=== PATIENT | female | born 1985 | race Caucasian/White ===

== ENCOUNTER → 2017-12-15 | Outpatient (CLI) | payer OTHER, BC ==
[~2017-12-15] MED LIST: AMOX-559 PO; AZIT-1 PO; ESCI20TA38 PO; OSEL30CA2 PO; ROBC PO
[2017-12-15 14:15] LABS: PLATELET COUNT, AUTOMATED 253 K/uL (150-450)
== END ==
LOC: LAB 13:38
PROVIDERS: ATTEND Nurse Practitioner Family
DX: Z01.83 Encounter for blood typing (principal); E11.9 Type 2 diabetes mellitus without complications; Z13.0 Encounter for screening for diseases of the blood and blood-forming organs and certain disorders involving the immune mechanism; Z11.8 Encounter for screening for other infectious and parasitic diseases
CPT/HCPCS: 36415; 83520; 84144; 85025; 86703; 86762; 86780; 86803; 86850; 86900; 86901; 87340

== ENCOUNTER → 2018-05-21 | Outpatient (CLI) | payer OTHER | LOC: LAB 10:25 | PROVIDERS: ATTEND Nurse Practitioner Family | DX: Z32.00 Encounter for pregnancy test, result unknown (principal) | CPT/HCPCS: 36415; 84144; 84702 ==